=== PATIENT | male | born 1945 | race Caucasian/White ===

== ENCOUNTER 2018-01-07 09:34 | Emergency (ER) | payer OTHER, MEDICARE ==
[2018-01-07] MEDS ORDERED: TETRACAINE HCL 0.5% OPH SOLN 2 ML OD ONE (10:04)
--- NOTE | 2018-01-07 11:35 | ER Document Report ---
HPI - HPI Patient complains to provider of: Irritated right eye Onset: Other - Sunday Onset/Duration: Gradual Pain Level: 4 Context: 73-year-old male was sawing bricks on Sunday and worked on some metal Sunday. He was not wearing safety glasses only his regular glasses. Sunday night his right eye became red and irritated. Associated Symptoms: None Exacerbated by: Denies Relieved by: Denies Similar symptoms previously: No Recently seen / treated by doctor: No - ROS ROS below otherwise negative: Yes Systems Reviewed and Negative: Yes All other systems reviewed and negative - DERM Skin Color: Normal Past Medical History - General Information source: Patient - Social History Smoking Status: Never Smoker Frequency of alcohol use: None Drug Abuse: None Lives with: Family Family History: Reviewed & Not Pertinent Patient has suicidal ideation: No Patient has homicidal ideation: No - Medical History Medical History: Negative Renal/ Medical History: Denies: Hx Peritoneal Dialysis Surgical Hx: Negative Vertical Provider Document - CONSTITUTIONAL Agree With Documented VS: Yes Exam Limitations: No Limitations - INFECTION CONTROL TRAVEL OUTSIDE OF THE [place] IN LAST 30 DAYS: No - HEENT HEENT: Conjuctival Injection, PERRLA Notes: embedded dark FB at 1 oclock right cornea. - NECK Neck: Supple - NEURO Level of Consciousness: Awake - DERM Integumentary: Warm Course - Re-evaluation Re-evalutation: 01/07/18 11:35 unable to get whole black foriegn body out with 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 Devine will see him in the office this afternoon he is in the [facility]. The address is [address] [place] [address]. [place]IP Code [id number]. He wants the patient to be there at 1:30. The patient states he can drive and see him this afternoon. 01/07/18 11:54 Right eye is 20/30, left eye is 20/25 01/10/18 00:49 - Vital Signs Vital signs: Temp Pulse Resp BP Pulse Ox 97.5 F 49 L 18 135/71 H 98 01/07/18 09:41 01/07/18 09:41 01/07/18 09:41 01/07/18 09:41 01/07/18 09:41 Discharge - Discharge Clinical Impression: Right corneal embedded foreign body Condition: Good Disposition: HOME, SELF-CARE Instructions: Corneal Foreign Body ([facility]) Additional Instructions: erythromycin eye ointment See Dr. Devine this afternoon at 1:30 PM. The address is [address] [place] [address], [id number] Referrals: JANE REYES MD [Primary Care Provider] - Follow up as needed
[2018-01-07] MEDS ORDERED: ERYTHROMYCIN 0.5% OPH OINTMENT 3.5 GM TUBE OD ONE (11:53)
[2018-01-07 11:56] VITALS: BP 136/71
== END 2018-01-07 12:24 | disposition home or self-care (01) ==
LOC: ER 09:34
DX: T15.01XA Foreign body in cornea, right eye, initial encounter (principal); X58.XXXA Exposure to other specified factors, initial encounter
CPT/HCPCS: 99283; J3490